=== PATIENT | female | born 1960 ===

== ENCOUNTER 2018-08-25 11:17 | Outpatient (CLI) | payer OTHER ==
[~2018-08-25] VITALS: Ht 152.4 cm; Wt 56.7 kg
== END 2018-08-25 11:35 | disposition home or self-care (01) ==
LOC: OFIC 805 11:17
DX: T16.1XXA Foreign body in right ear, initial encounter (principal); H61.23 Impacted cerumen, bilateral

== ENCOUNTER 2020-12-06 10:32 | Emergency (ER) | payer OTHER ==
[~2020-12-06] VITALS: Ht 165.1 cm; Wt 54.4 kg
[2020-12-06] MEDS ORDERED: RESTORIL15 M1 (11:15)
[2020-12-06] MEDS ORDERED: CLONAZEPAM0.5 MG (11:16)
== END 2020-12-06 14:50 | disposition home or self-care (01) ==
LOC: ER 10:32
DX: M54.2 Cervicalgia (principal); R53.81 Other malaise; Z03.818 Encounter for observation for suspected exposure to other biological agents ruled out